=== PATIENT | male | born 1990 | race African-American/Black ===

== ENCOUNTER → 2016-12-24 | Outpatient (CLI) | payer OTHER ==
[~2016-12-24] MED LIST: CONRAY-43 43% 50ML VIAL (Q9960) As Ordered ONE; LIDOCAINE 1% MDV 20ML VIAL As Ordered ONE; TRIAMCINOLONE ACETONIDE SUSP 40 MG/ML VIAL (J3301) As Ordered ONE
--- NOTE | 2016-12-27 08:38 | REP ---
RIGHT HIP INJECTION: The procedure was performed under the direct supervision of Dr. Parada. The benefits and risks including but not limited to pain, infection, bleeding, and anaphylaxis were explained to the patient and informed consent was obtained. The right femoral neck was localized using fluoroscopic guidance. The skin was prepped and draped in a sterile fashion. 1% lidocaine was used as a local anesthetic. Using fluoroscopic guidance, a 22-gauge spinal needle was inserted and advanced to the femoral neck. 0.5 mL of Conray 43 was injected to verify placement. 10 mL of a solution containing 9 mL of 1% lidocaine and 1 mL of Kenalog 40 mg was injected. The needle was then removed. The patient tolerated the procedure well and there were no immediate complications. 1 second of fluoroscopy time was utilized for this procedure. Reviewed by MARIYA Tejada 12/27/2016 05:01 PEdited and Signed by Zaid Parada MD 12/27/2016 07:54 P
== END ==
LOC: M RADPRO 10:10
PROVIDERS: ATTEND Orthopaedic Surgery
DX: M25.551 Pain in right hip (principal)
CPT/HCPCS: 20611; 77002; J3301; Q9960

== ENCOUNTER → 2017-01-06 | Outpatient (CLI) | payer OTHER ==
--- NOTE | 2017-01-06 14:10 | REP ---
Whole body radionuclide bone scan: History: Right iliac bone lesion. Comparison MRI study October 01, [address] study October 17, 2016. Technique: 21.9 mCi technetium 99m MDP is injected and standard whole body bone scan images are acquired. Scintigraphic findings: There is a normal distribution of skeletal tracer with uptake in bilateral kidneys and in the urinary bladder. There is no abnormal uptake in the pelvis. There is no increased uptake to correspond with the location of the right iliac bone lesion. No other abnormal area of increased bone uptake is seen. Impression: Normal whole body radionuclide bone scan. Signed by Domenico Haskins MD 01/06/2017 02:34 P
== END ==
LOC: M RAD 10:00
PROVIDERS: ATTEND Orthopaedic Surgery
DX: M89.9 Disorder of bone, unspecified (principal)

== ENCOUNTER → 2017-02-20 | Outpatient (CLI) | payer OTHER | LOC: M RAD 08:54 | PROVIDERS: ATTEND Orthopaedic Surgery | DX: M89.9 Disorder of bone, unspecified (principal); Z53.9 Procedure and treatment not carried out, unspecified reason ==

== ENCOUNTER → 2017-07-19 | Outpatient (CLI) | payer OTHER ==
--- NOTE | 2017-07-22 13:00 | SLEEPCENT ---
DATE OF STUDY: 07/19/2017 ORDERED BY: Addie Carballo Nocturnal polysomnography was performed for evaluation of sleep physiology in this patient with a history of excessive somnolence and nonrestorative sleep. 7 hours and 28 minutes of data were reviewed. There were 380 minutes of sleep identified. Sleep latency was prolonged at 37 minutes. Rapid eye movement (REM) latency was more so prolonged at 154 minutes. Sleep architecture was fair. There were 3 REM cycles. Some initial poor progression was noted. Overall sleep efficiency was however 85.7%. The patient's electrocardiogram (EKG) showed a sinus rhythm with an average heart rate of 63 beats per minute. Electroencephalogram (EEG) showed coarsening in background, some alpha intrusion into non REM stages. There were only 5 respiratory events identified of 10 seconds in duration or greater for an apnea-hypopnea index of 0.8. Some snoring was noted, but no significant oxygen desaturations were seen. There was also some limb activity appreciated with a limb movement arousal index at the upper limits of normal at 5.5 per hour. IMPRESSION: Normal nocturnal polysomnography with snoring and alpha intrusion into non REM stages. RECOMMENDATION: Alpha intrusion has been identified in patient's with physical discomfort and this may be impairing the patient's sleep.
== END ==
LOC: M SLEEP 20:00
PROVIDERS: ATTEND Nurse Practitioner Adult Health
DX: G47.30 Sleep apnea, unspecified (principal)